=== PATIENT | female | born 1960 | race Caucasian/White ===

== ENCOUNTER 2016-07-14 15:07 | Emergency (ER) | payer OTHER, MEDICAID ==
[~2016-07-14] VITALS: Ht 162.6 cm; Wt 83.9 kg
[~2016-07-14 15:07] MED LIST: LEVO100I IV
[2016-07-14 16:08] LABS: Albumin 4.4 g/dL (3.4-5.0); Calcium 9.3 mg/dL (8.5-10.1); Potassium 4.2 mmol/L (3.5-5.1)
[2016-07-14 16:10] LABS: BUN/Creatinine Ratio 16.2
[2016-07-14 16:12] LABS: Basophils # (auto) 0 uL; Basophils % (auto) 0.3 % (0.0-2.0); Eosinophils # (auto) 0.2 uL; Eosinophils % (auto) 2.4 % (0.0-7.0); Hematocrit 36.6 % (36.0-46.0); Hemoglobin 12.1 g/dL (12.2-16.2); Lymphocytes # (auto) 2.2 uL; Lymphocytes % (auto) 33.5 % (10.0-50.0); Mean Corpuscular Hgb Conc. 33.2 g/dL (32.0-36.0); Mean Corpuscular Volume 93.3 fL (80.0-100.0); Mean Platelet Volume 7.9 fL (7.4-10.4); Monocytes # (auto) 0.4 uL; Monocytes % (auto) 6.9 % (0.0-12.0); Neutrophils # (auto) 3.7 uL; Neutrophils % (auto) 56.9 % (37.0-80.0); Platelet Count (auto) 325 10^3/uL (140-450); Red Cell Distribution Width 13.3 % (11.6-16.0); White Blood Cell 6.5 10^3/uL (4.4-10.8)
[2016-07-14 16:13] LABS: Bilirubin, Total 0.5 mg/dL (0.2-1.0); Total Protein 7.1 g/dL (6.4-8.2)
[2016-07-14] MEDS ORDERED: SODIUM CHLORIDE 0.9% 250 ML IV ONE (16:26)
[2016-07-14 17:28] LABS: Urine RBC None Seen /hpf (0 - 4)
[2016-07-14 18:11] LABS: Urine Bilirubin Negative (Negative); Urine Blood Negative /uL (Negative); Urine Color Yellow (Yellow); Urine Glucose Normal (Normal); Urine Ketone Negative (Negative); Urine Nitrite Negative (Negative); Urine Squamous Epithelial Cell FEW /hpf (<5); Urine Urobilinogen Normal (Negative); Urine pH 7.5 (5.0-8.0)
[2016-07-14 20:19] VITALS: BP 128/70
== END 2016-07-14 20:44 | disposition home or self-care (01) ==
LOC: EDBD 15:07 → ER 15:14
DX: G40.909 Epilepsy, unspecified, not intractable, without status epilepticus (principal); R53.1 Weakness; E03.9 Hypothyroidism, unspecified; R51 Headache
CPT/HCPCS: 36415; 71020; 80053; 81001; 83735; 84443; 85025; 93005; 94761; 99285; J7030

== ENCOUNTER 2017-06-19 02:52 | Emergency (ER) | payer OTHER, MEDICAID ==
[~2017-06-19] VITALS: Ht 172.7 cm; Wt 81.6 kg
[2017-06-19 05:46] LABS: Urine Bacteria NONE SEEN /hpf (None Seen); Urine Blood Negative /uL (Negative); Urine Specific Gravity 1.004 (1.001-1.035); Urine WBC <1 /hpf (0 - 5)
[2017-06-19 06:47] LABS: Amphetamine Screen, Urine NEGATIVE (NEGATIVE); Barbiturate Scree,Urine NEGATIVE (NEGATIVE); Benzodiazephine Screen, Urine NEGATIVE (NEGATIVE); Cannabinoid Screen, Urine NEGATIVE (NEGATIVE); Cocaine Screen, Urine NEGATIVE (NEGATIVE); Opiate Scree,Urine NEGATIVE (NEGATIVE); Phencyclidine Screen, Urine NEGATIVE (NEGATIVE)
[2017-06-19 06:59] LABS: Basophils # (auto) 0 uL; Basophils % (auto) 0.4 % (0.0-2.0); Eosinophils # (auto) 0.1 uL; Eosinophils % (auto) 1.4 % (0.0-7.0); Hematocrit 35.8 % (36.0-46.0); Lymphocytes # (auto) 3.4 uL; Lymphocytes % (auto) 38.9 % (10.0-50.0); Mean Corpuscular Hemoglobin 32.1 pg (28.0-32.0); Mean Corpuscular Hgb Conc. 33.6 g/dL (32.0-36.0); Mean Corpuscular Volume 95.6 fL (80.0-100.0); Monocytes # (auto) 0.6 uL; Neutrophils # (auto) 4.5 uL; Neutrophils % (auto) 52.3 % (37.0-80.0); Nucleated Red Blood Cells % 0.1 %; Platelet Count (auto) 259 10^3/uL (140-450); Red Blood Cells 3.74 10^6/uL (4.0-5.20); Red Cell Distribution Width 13.4 % (11.8-14.3); White Blood Cell 8.6 10^3/uL (4.4-10.8)
[2017-06-19 07:18] LABS: Albumin 4.1 g/dL (3.4-5.0); BUN/Creatinine Ratio 14.4; Bilirubin, Total 0.4 mg/dL (0.2-1.0); Calcium 8.4 mg/dL (8.5-10.1); Total Protein 6.9 g/dL (6.4-8.2)
[2017-06-19 09:48] VITALS: BP 129/85
[2017-06-19] MEDS ORDERED: ACETAMINOPHEN 325 MG TAB PO ONE (10:30)
== END 2017-06-19 11:02 | disposition home or self-care (01) ==
LOC: EDBD 02:52 → EDUNIT# 02:52 → ER 02:59
DX: S00.03XA Contusion of scalp, initial encounter (principal); G40.909 Epilepsy, unspecified, not intractable, without status epilepticus; F32.9 Major depressive disorder, single episode, unspecified; F41.9 Anxiety disorder, unspecified; Z90.49 Acquired absence of other specified parts of digestive tract; Z90.710 Acquired absence of both cervix and uterus; Z88.6 Allergy status to analgesic agent; W19.XXXA Unspecified fall, initial encounter; Y93.89 Activity, other specified; Y92.89 Other specified places as the place of occurrence of the external cause; Y99.8 Other external cause status
CPT/HCPCS: 36415; 70450; 72125; 80053; 80307; 80320; 81001; 85025

== ENCOUNTER 2021-06-25 16:14 | Emergency (ER) | payer OTHER, MEDICAID ==
[~2021-06-25] VITALS: Ht 167.6 cm; Wt 104.3 kg
[2021-06-25 16:25] VITALS: BP 144/77
== END 2021-06-25 18:17 | disposition home or self-care (01) ==
LOC: ER 16:14
DX: S83.91XA Sprain of unspecified site of right knee, initial encounter (principal); S46.911A Strain of unspecified muscle, fascia and tendon at shoulder and upper arm level, right arm, initial encounter; Z90.49 Acquired absence of other specified parts of digestive tract; Z90.710 Acquired absence of both cervix and uterus; W01.0XXA Fall on same level from slipping, tripping and stumbling without subsequent striking against object, initial encounter; Y93.89 Activity, other specified; Y92.89 Other specified places as the place of occurrence of the external cause; Y99.8 Other external cause status
CPT/HCPCS: 73030; 73562

== ENCOUNTER 2024-05-03 06:05 | Observation (INO) | payer OTHER, MEDICAID ==
[~2024-05-03] VITALS: Ht 167.6 cm; Wt 104.3 kg
[~2024-05-03 06:05] MED LIST changes: +CITA-73 PO; +LAMO200T34 PO; -LEVO100I IV; +LEVO88CA3 PO; +PANT40TA2 PO; +TEMA30CA PO
[2024-05-03] MEDS: ROPIVACAINE 0.5% (5MG/ML) 20ML AMPULE IJ ONE (07:12)
[2024-05-03] MEDS ORDERED: HYDROmorphone HCL 2 MG/ML VL/or syr ONE (07:24)
[2024-05-03] MEDS ORDERED: fentaNYL CITRATE 100 MCG/2 ML VL ONE (07:24)
[2024-05-03] MEDS ORDERED: MIDAZOLAM HCL 2MG/2ML 2ml VIAL (1mg/ml) ONE (07:24)
[2024-05-03] MEDS ORDERED: DexAMETHasone SOD PHOS 10MG/1ML VIAL INJ ONE (07:24)
--- NOTE | 2024-05-03 07:24 | DVHOP2 ---
Operative Report - 2 Report Details Date: 05/03/24 Preop Diagnosis: Right shoulder rotator cuff arthropathy Postop Diagnosis: Right shoulder rotator cuff arthropathy Surgeon: Feng Franz MD Anesthesiologist: Dr Robertson Anesthesia: General, Regional Implant: FX shoulder system Consent: The patient was informed of the risks and benefits of the procedure. These include but are not limited to complications of anesthesia, postoperative infection, incomplete relief of symptoms, recurrence of symptoms, damage to blood vessels, nerves and tendons, deep venous thrombosis, pulmonary embolism and possible need for repeat surgery in the future. Complications: None Estimated Blood Loss: Less than 100 mL Indications for Surgery: The patient is a 64-year-old female who presented to the clinic with a history of right shoulder pain. She had history of prior rotator cuff repairs done at an outside hospital. MRI showed significant atrophy of the rotator cuff muscles with significant retraction and massive rotator cuff tear. Nonoperative and operative management options were discussed. 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 Sensation over the axillary nerve was intact. Nonoperative and operative management options were discussed. Surgery in the form of reverse shoulder arthroplasty was discussed as one of the options. This was recommended given her age and activity level. Surgical complications such as neurovascular injury, infection, arthrofibrosis, loss of limb or life were discussed. The p atient decided to proceed with the surgical option. Name of Procedure Performed Right reverse shoulder replacement, open biceps tenodesis Procedure Details Procedure Details: The patient was identified in the preoperative holding area and the surgical site was marked. The consent was verified. The patient was brought into the operating room and placed supine on the operating table. General anesthesia was administered. The patient was brought into the beachchair position at 45 degrees angle. The extremity was prepped and draped in the usual sterile manner with Betadine and ChloraPrep. A timeout was called out to confirm the identity of the patient, the nature of surgery, the site of surgery, development of implants and x-rays and allergies to medications. All the bony prominences were appropriately padded Exposure: A standard deltopectoral approach was used. An incision was made from the superior portion of the coracoid to the upper arm lateral to the axillary line. The skin and the subcutaneous tissue were dissected. The deep fascia was incised. The cephalic vein was identified. The coracoid was identified and the conjoined tendon was also identified. The pectoralis tendon, approximately 1 cm was released. The biceps tendon was identified and tenodesis was carried out. This was sutured to the pectoralis major tendon with the help of FiberWire suture and was cut proximally. Sherman retractors were inserted. Adequate exposure was noted. The deltoid was released with the help of a Wilson elevator for better exposure. The subscapularis tendon was identified. The subsca pularis tendon was released. Circumflex arteries and veins were coagulated. This was whipstitched for later identification and possible repair. The humeral head was now exposed with external rotation and release of the inferior capsule. This was gently dislocated using a Darrach retractor. There was a full thickness rotator cuff tear, massive retraction Humeral cut: The retroversion was set to 30 degrees. An external guide was used and affixed to the bone with the help of guide pins. Next, a saw was used to create the humeral cut. This was just above the rotator cuff footprint. Next, a small drill was used to find the intramedullary canal. Next, the humeral side was now prepared. This was now reamed up to 14 mm. Glenoid exposure and implantation of glenoid prosthesis: A Darrach retractor was then inserted to retract the humeral head and expose the glenoid. Release of the anterior and posterior capsule was carried out. Release of the middle and inferior glenohumeral ligament was carried out. Superior labrum and biceps were removed. Some cartilage damage of the glenoid was noted. Minimal retroversion was noted. A tug test was performed to confirm the position of the axillary nerve which was out of the surgical field. The inferior capsule was left intact and was released only with the help of a blunt elevator. Next, the center of the glenoid was marked with the help of a Bovie using the biceps and the coracoid as landmarks. Next a guide was inserted, a guidewire was inserted through the central portion. This was found to be in anatomic location, slightly inferior to the center. Next the central reamer was inserted. Next the hand-held peripheral reamer was inserted. The periphery was reamed, minimal cartilage was removed. Appropriate soft tissue resection was carried out. Minimal cartilage was removed to preserve the underlying bone. Next the baseplate was inserted with the help of an make up editor A central post was applied to the final implant on the back table and inserted with gentle taps. It was rotated to align the screws in the appropriate directions. Next a drill guide was used to drill the hole for the screws. Locking and nonlocking screws were used for excellent compression and fixation. Central screw was inserted. The glenosphere was now implanted on top of the baseplate over the guidewire with the screw. The screw was rotated over the glenosphere for excellent fixation. No impingement was noted. A Katherin was used to test the stability of baseplate as well as the glenosphere and was found to be very secure. Next, a trial stem was inserted. Next, a provisional soft tissue tensioning assessment was done with an attempt to reduce with a 3 mm trial liner. This was found to be adequate with 1 mm of shuck. The final stem and liner was opened up. The joint was now trialed again with a 6 mm liner and was noticed to be excellent. A final 6 mm implant was opened up and inserted on the humeral stem. This was tapped and excellent fixation was noted. Excellent stability and range of motion was noted, abduction of 120 and flexion up to 120 degrees. The shoulder did not dislocate with adduction, internal rotation and extension or with abduction and external rotation. Shuck test was acceptable with approximately 1 mm of gap with manual longitudinal traction. The fixation was tested with the help of a Katherin clamp. Excellent fixation was noted. Irrigation was given with bulb syringe lavage with bacitracin and normal saline, Betadine and vancomycin powder was applied as well. All bony debris was also removed. C-arm was used throughout the procedure for evaluation of guidewire, humeral cut, baseplate and glenosphere position and finally humerus stem position and joint reduction. The subscapularis was approximated with the help of looped Ethibond sutures through the bone tunnel. Some approximation was noted. The deep tissue, skin and the subcutaneous tissue were closed with 0 Vicryl, 2-0 Vicryl, and letha. Sterile dressing was applied. The patient was placed in a shoulder immobilizer. Condition Good Disposition Home FENG FRANZ MD May 03, 2024 07:24
[2024-05-03] MEDS: ceFAZolin 2 GM/D5W100ml 100 ML IV ONE (07:26)
[2024-05-03] MEDS: CEFEPIME 1GM/ 50ML 50 ML IV ONE (07:26)
[2024-05-03] MEDS: TRANEXAMIC ACID 20 ML ONE (07:35)
[2024-05-03] MEDS ORDERED: ONDANSETRON HCL 4 MG/2 ML VIAL ONE (07:44)
[2024-05-03] MEDS ORDERED: ETOMIDATE (2MG/ML) 20ML VIAL IV ONE (07:44)
[2024-05-03] MEDS: CLINDAMYCIN 600MG IV 50 ML IV ONE (07:45)
[2024-05-03] MEDS: KETOROLAC TROMETH 30 MG/ML 1ML VIAL ONE (08:13)
[2024-05-03] MEDS: BUPIVACAINE 0.25% INJ 50ML VIAL ONE (08:13)
[2024-05-03] MEDS: MORPHINE SULF PF 5 MG/10 ML VIAL ONE (08:13)
[2024-05-03] MEDS: CLINDAMYCIN 300MG IV 50 ML IV ONE (08:20)
[2024-05-03] MEDS ORDERED: hydrALAZINE HCL 20 MG/ML VL IV PRN (08:30)
[2024-05-03] MEDS: KETOROLAC TROMETH 30 MG/ML 1ML VIAL IV ONE (08:30)
[2024-05-03] MEDS ORDERED: ePHEDrine SULFATE 50 MG/ML AMP IV PRN (08:30)
[2024-05-03] MEDS ORDERED: HYDROmorphone HCL 2 MG/ML VL/or syr IV PRN (08:30)
[2024-05-03] MEDS ORDERED: MORPHINE SULFATE 4 MG/ML SYR/VIAL IV PRN (08:30)
[2024-05-03] MEDS: ONDANSETRON HCL 4 MG/2 ML VIAL IV ONE (08:30)
[2024-05-03] MEDS ORDERED: MIDAZOLAM HCL 2MG/2ML 2ml VIAL (1mg/ml) IV PRN (08:30)
[2024-05-03] MEDS ORDERED: ROCURONIUM 10MG/ML 10ML VIAL IV ONE (08:43)
[2024-05-03] MEDS: VANCOMYCIN HCL 1000 MG VL ONE (09:16)
[2024-05-03] MEDS ORDERED: ePHEDrine SULFATE 50 MG/ML AMP ONE (09:52)
[2024-05-03] MEDS ORDERED: SUGAMMADEX 200mg/2ml Vial (100MG/ML) IV ONE (09:52)
--- NOTE | 2024-05-03 10:15 | DVH ---
FLUOROSCOPY TIME: 8.2 seconds TECHNIQUE: Intraoperative radiographs of the right shoulder were obtained. COMPARISON: None FINDINGS: Refer to intraoperative report for further evaluation. IMPRESSION: Refer to intraoperative report for further evaluation.
--- NOTE | 2024-05-03 10:15 | DVH ---
FLUOROSCOPY TIME: 8.2 seconds TECHNIQUE: Intraoperative radiographs of the right shoulder were obtained. COMPARISON: None FINDINGS: Refer to intraoperative report for further evaluation. IMPRESSION: Refer to intraoperative report for further evaluation.
[2024-05-03 10:20] VITALS: O2SAT 98
[2024-05-03] MEDS ORDERED: ONDANSETRON HCL 4 MG/2 ML VIAL IV PRN (10:30)
[2024-05-03] MEDS ORDERED: MORPHINE SULFATE INJ 2 MG/ml SYRG IV PRN (10:30)
[2024-05-03] MEDS ORDERED: NITROGLYCERIN 0.4 MG SL TAB SL PRN (10:30)
[2024-05-03 13:09] VITALS: BP 118/64; PULSE 86; RESP 16; TEMP 97.3; O2SAT 97
[2024-05-03 14:10] LABS: Chloride 106 mmol/L (98-107); Potassium 4.4 mmol/L (3.5-5.1); Sodium 138 mmol/L (136-145)
[2024-05-03 14:11] LABS: Anion Gap 9 (5-15); Calcium 9.5 mg/dL (8.7-10.4); Carbon Dioxide 23 mmol/L (20-31)
[2024-05-03 14:16] LABS: BUN/Creatinine Ratio 16.5 (10.0-20.0); Blood Urea Nitrogen 17 mg/dL (9-23); Glucose 137 mg/dL (74-106)
[2024-05-03] MEDS: ceFAZolin 1GM/50ML 50 ML IV SCH (14:56)
[2024-05-03 16:40] VITALS: BP 122/69; PULSE 69; RESP 18; TEMP 97.9; O2SAT 96
[2024-05-03] MEDS: LACTATED RINGER'S 1,000 ML IV SCH (18:40)
[2024-05-03 20:00] VITALS: PULSE 68; RESP 18; O2SAT 96
[2024-05-03] MEDS: DOCUSATE SOD 100 MG CAP PO SCH (20:58)
[2024-05-03 21:00] VITALS: BP 128/64; PULSE 65; RESP 18; TEMP 97.7; O2SAT 96
[2024-05-03] MEDS: HYDROmorphone HCL 2 MG/ML VL/or syr IV PRN (22:52)
[2024-05-04 01:00] VITALS: BP 133/54; PULSE 62; RESP 19; TEMP 97.7; O2SAT 97
[2024-05-04 05:00] VITALS: BP 135/71; PULSE 60; RESP 18; TEMP 97.6; O2SAT 98
--- NOTE | 2024-05-04 07:46 | DVHDS2 ---
Discharge Summary Date of Admission May 03, 2024 at 10:22 Date of Discharge: May 04, 2024 Labs/Diagnostic Data: Laboratory Results Test 05/03/24 13:20 Sodium Level 138 mmol/L (136-145) Potassium Level 4.4 mmol/L (3.5-5.1) Chloride Level 106 mmol/L (98-107) Carbon Dioxide Level 23 mmol/L (20-31) Anion Gap 9 (5-15) Blood Urea Nitrogen 17 mg/dL (9-23) Creatinine 1.03 mg/dL (0.550-1.02) Glomerular Filtration Rate Calc 60 mL/min (>90) BUN/Creatinine Ratio 16.5 (10.0-20.0) Serum Glucose 137 mg/dL (74-106) Calcium Level 9.5 mg/dL (8.7-10.4) Other Laboratory Tests 05/03/24 13:20 Brief Hx & Hospital Course: Patient was brought to the hospital yesterday to undergo a right reverse shoulder arthroplasty. She tolerated the procedure well without complications and was kept overnight for postoperative observation. She has remained medically stable denying any overnight events but does reports severe postoperative shoulder pain that is only minimally improved with the help of pain medication. Patient reports that she has been able to get up and walk around her room to use the restroom and back to her bed with minimal issues. Patient is otherwise feeling well denying any other complaint or concern during my evaluation. Condition at Discharge: Good Final Diagnosis/Problems List Right shoulder rotator cuff arthropathy Discharge Disposition: Home Discharge Instruct/Medications Diet: Regular Activity: See Comment Activity comment: Patient to remain in shoulder immobilizer for six weeks from her date of surgery Follow Up/Referral: I instructed the patient to follow up with our office in 10-14 days for her 1st postoperative evaluation Medications: Rx sent via our outpatient EMR system Discharge Statement: "Patient was advised to return to the ER or call 911 if any headaches, dizziness, shortness of breath, chest pain, abdominal pain, bleeding, fevers, or worsening of medical condition. Patient was counseled about treatment plan, medications, possible side effects, patientverbalized understanding. All questions were answered to the best of my ability. This discharge took greater then 30 minutes in planning, reviewing documentation, counseling the patient, and discussing with other team members." ASSESSMENT ASSESSMENT Assessment Right shoulder rotator cuff arthropathy GIA ESPOSITO May 04, 2024 07:46
--- NOTE | 2024-05-04 07:50 | DVHPN2 ---
Progress Note - Dictate Date Seen: May 04, 2024 Medical Necessity Reason Pt with a Central, PICC or Fol: No Subjective Patient was sitting up comfortably in bed during my evaluation reports some postoperative shoulder pain that is being minimally improved with the help of pain medication. Patient reports that she has been able to get up and walk around her room to use the restroom and back to her bed with minimal issues. Patient is otherwise feeling well denying any other complaint or concern during my evaluation. vital signs Vital Sign Date Time Temp Pulse Resp B/P (MAP) Pulse Ox O2 Delivery O2 Flow Rate FiO2 05/04/24 06:52 70 18 130/68 05/04/24 05:00 97.6 98 97.6 05/03/24 20:00 Nasal Cannula* 3 32 Total Intake and Output 05/03/24 05/03/24 05/04/24 15:00 23:00 07:00 Intake Total 270 ml 650 ml 1100 ml Balance 270 ml 650 ml 1100 ml medications Current Medications Medications Dose Ordered Sig/Sharon Route Start Time Stop Time Status Last Admin Dose Admin Lactated Ringer's 1,000 ml @ 100 mls/hr Q10H IV 05/03/24 10:30 05/04/24 06:29 100 MLS/HR Acetaminophen 650 mg Q6HP PRN PO 05/03/24 10:30 Hydromorphone HCl 1 mg Q2HP PRN IV 05/03/24 10:30 05/04/24 06:22 1 MG Ondansetron HCl 4 mg Q6HP PRN IV 05/03/24 10:30 Docusate Sodium 100 mg Q12HR PO 05/03/24 22:00 05/03/24 20:58 100 MG Nitroglycerin 0.4 mg Q5MINP PRN SL 05/03/24 10:30 Morphine Sulfate 2 mg Q30M PRN IV 05/03/24 10:30 objective A&O x4 in no acute distress Shoulder range of motion not evaluated as patient remains in shoulder immobilizer Aquacel dressing clean, dry, and intact No distal edema or calf tenderness to palpation Neurovascularly intact with cap refill less than 2 seconds laboratory and microbiology Laboratory Tests 05/03/24 13:20 Test 05/03/24 13:20 Range/Units Serum Glucose 137 H 74-106 mg/dL Assessment/Plan Patient to be discharged home and advised to remain in her shoulder immobilizer for six weeks from the date of her surgery. I also advised the patient to maintain her dressings clean, dry, and intact and to call our office to schedule her 1st postoperative evaluation in 10-14 days or if she has any questions or concerns. Rx sent via our outpatient EMR system. She understood and agreed. Plan discussed with: Patient GIA ESPOSITO May 04, 2024 07:50
[2024-05-04 08:00] VITALS: PULSE 72; RESP 18; O2SAT 97
[2024-05-04 09:00] VITALS: BP 133/69; PULSE 66; RESP 20; TEMP 97.8; O2SAT 97
[2024-05-04] MEDS: ACETAMINOPHEN 325 MG TAB PO PRN (09:11)
[2024-05-04 10:04] LABS: Albumin 4.7 g/dL (3.2-4.8); Alkaline Phosphatase 102 U/L (46-116); Anion Gap 7 (5-15); BUN/Creatinine Ratio 18.1 (10.0-20.0); Blood Urea Nitrogen 17 mg/dL (9-23); Calcium 9.8 mg/dL (8.7-10.4); Carbon Dioxide 28 mmol/L (20-31); Chloride 101 mmol/L (98-107); Potassium 4.2 mmol/L (3.5-5.1); Sodium 136 mmol/L (136-145)
[2024-05-04 10:05] LABS: Bilirubin, Total 0.7 mg/dL (0.2-1.0); Total Protein 6.8 g/dL (5.7-8.2)
[2024-05-04 10:33] LABS: Alanine Aminotransferase 52 U/L (7-40); Aspartate Aminotransferase 63 U/L (13-40); Glucose 112 mg/dL (74-106)
== END 2024-05-04 12:15 | disposition home or self-care (01) ==
LOC: SUR 06:05 → OVERFLOW 10:22 → WEST WING 12:19
PROVIDERS: ADMIT Orthopaedic Surgery Sports Medicine; ATTEND Orthopaedic Surgery Sports Medicine
DX: M75.121 Complete rotator cuff tear or rupture of right shoulder, not specified as traumatic (principal); F32.9 Major depressive disorder, single episode, unspecified; E03.9 Hypothyroidism, unspecified; G83.9 Paralytic syndrome, unspecified; Z79.899 Other long term (current) drug therapy; Z98.890 Other specified postprocedural states
CPT/HCPCS: 23472; 36415; 73020; 76000; 80048; 80053; 86850; 86900; 86901; 96365; 96366; 96375; 96376; 97163; C1713; C1776; G0378; J0690; J0692; J1100; J1171; J1885; J2250; J2270; J2405; J2795; J3010; J3370; J3490; A4565

== ENCOUNTER 2024-11-29 15:39 | Emergency (ER) | payer OTHER, MEDICAID ==
[~2024-11-29] VITALS: Ht 165.1 cm; Wt 110.3 kg
[2024-11-29 16:24] VITALS: BP 156/89; PULSE 74; RESP 17; TEMP 97.8; O2SAT 94
--- NOTE | 2024-11-29 16:27 | ED.PDOC ---
GI ASSESSMENT HPI Comments A 64 YEAR OLD FEMALE PRESENTS TO THE ED WITH COMPLAINT OF RIGHT MIDDLE ABDOMINAL PAIN. PATIENT STATES SHE HAS BEEN EXPERIENCING RIGHT-SIDED MIDDLE ABDOMINAL PAIN THAT RADIATES TO HER FLANK WITH NAUSEA FOR THE PAST 3 DAYS. PATIENT NOTES HER PAIN IS WORSE WITH MOVEMENT. PATIENT DENIES DYSURIA, HEMATURIA, FEVER, CHILLS, SHORTNESS OF BREATH, CHEST PAIN, VOMITING, HEADACHE, OR OTHER COMPLAINTS. NO OTHER SYMPTOMS OR MODIFYING FACTORS AT THIS TIME. PATIENT IS ALERT, ORIENTED X 4, AND HAS STEADY GAIT. Chief Complaint: Abdominal Pain Time Seen by MD: 15:53 Primary Care Provider: ZARI Reviewed Notes: Nurses Notes, Medications, Allergies Allergies: Coded Allergies: Clonazepam (Unverified Allergy, Severe, hypotension, 05/02/24) Hydroxyzine (Verified Allergy, Unknown, 12/20/13) Phenylephrine (Verified Allergy, Unknown, 05/02/24) Uncoded Allergies: PAPER TAPE (Allergy, Unknown, 11/29/24) ADHESIVE (Adverse Reaction, Unknown, 12/20/13) Home Meds Active Scripts Tramadol Hcl (Tramadol Hcl) 50 Mg Tab, 50 MG PO BID, #20 TAB Prov:SANDEE CHERRY 11/29/24 Reported Medications Temazepam (Temazepam) 30 Mg Cap, 30 MG PO HS, CAP 05/02/24 Citalopram Hydrobromide (Citalopram Hydrobromide) 40 Mg Tab, 40 MG PO QAM, TAB 05/02/24 Pantoprazole Sodium Sesquihydr (Protonix) 40 Mg Tab, 40 MG PO DAILY, #30 TAB 05/02/24 Lamotrigine (Lamotrigine) 200 Mg Tab, 200 MG PO BID, TAB 05/02/24 Levothyroxine Sodium (Levothyroxine Sodium) 88 Mcg Cap, 88 MCG PO DAILY, CAP 05/02/24 Information Source: Patient Mode of Arrival: Ambulatory Timing: Days Duration: Since onset, Days Prehospital treatment: None Quality: Aching, Cramping, Colicky Vomitus: None Stool: Normal Severity: Moderate Recent: None Recent Hx of: None Pain Location: Epigastric, RUQ, Other (RIGHT MIDDLE ABDOMINAL PAIN) Modifying Factors: Nothing Associated sign and symptoms: Abdominal Pain Past Medical History PAST MEDICAL HISTORY: Anxiety, Depression, GERD, Seizures, Thyroid Past Medical History (Other): HIATAL HERNIA Surgical History: Appendectomy, Cholecystectomy, Hysterectomy WEB PRODUCTION ASSISTANT History: No Pertinent WEB PRODUCTION ASSISTANT History Family History Family History: Reviewed,noncontributory to illness Social History Smoker: Non-Smoker Alcohol: Heavy Drugs: Denies Drug Use Lives In: Home Constitutional: denies: chills, diaphoresis, fatigue, fever, malaise, sweats, weakness, others EENTM: denies: blurred vision, double vision, ear bleeding, ear discharge, ear drainage, ear pain, ear ringing, eye pain, eye redness, hearing loss, mouth pain, mouth swelling, nasal discharge, nose bleeding, nose congestion, nose pain, photophobia, tearing, throat pain, throat swelling, voice changes, others Respiratory: denies: cough, hemoptysis, orthopnea, SOB at rest, shortness of breath, SOB with excertion, stridor, wheezing, others Cardiovascular: denies: chest pain, dizzy spells, diaphoresis, Dyspnea on exertion, edema, irregular heart beat, left arm pain, lightheadedness, palpitations, PND, syncope, others Gastrointestinal: reports: abdominal pain, nausea; denies: abdomen distended, blood streaked bowels, constipated, diarrhea, dysphagia, difficulty swallowing, hematemesis, melena, poor appetite, poor fluid intake, rectal bleeding, rectal pain, vomiting, others Genitourinary: denies: abnormal vagina bleeding, burning, dyspareunia, dysuria, flank pain, frequency, hematuria, incontinence, pain, , vagina discharge, urgency, others Neurological: denies: dizziness, fainting, headache, left sided numbness, left sided weakness, numbness, paresthesia, pre-existing deficit, right sided numbness, right sided weakness, seizure, speech problems, tingling, tremors, weakness, others Musculoskeletal: denies: back pain, gout, joint pain, joint swelling, muscle pain, muscle stiffness, neck pain, others Integumetry: denies: bruises, change in color, change in hair/nails, dryness, laceration, lesions, lumps, rash, wounds, others Allergic/Immunocompromised: denies: Difficulty Healing, Frequent Infections, Hives, Itching, others Hematologic/Lymphatic: denies: anemia, blood clots, easy bleeding, easy bruising, swollen glands, others Endocrine: denies: excessive hunger, excessive sweating, excessive thirst, excessive urination, flushing, intolerance to cold, intolerance to heat, unexplained weight gain, unexplained weight loss, others Psychiatric: denies: anxiety, bipolar disorder, depression, hopeless, panic disorder, schizophrenia, sleepless, suicidal, others All Other Systems: Reviewed and Negative Physical Exam General Appearance: Obese HEENT: Normal ENT Inspection, PERRL/EOMI, Pharynx Normal, TMs Normal Neck: Full Range of Motion, Non-Tender, Normal, Normal Inspection Respiratory: Chest Non-Tender, Lungs Clear, No Accessory Muscle Use, No Respiratory Distress, Normal Breath Sounds Cardiovascular: No Edema, No JVD, No Murmur, No Gallop, Normal Peripheral Pulses, Regular Rate/Rhythm Breast Exam: Deferred Gastrointestinal: Epigastric, No Organomegaly, No Pulsatile Mass, Normal Bowel Sounds, RUQ, Soft, Tenderness (RIGHT UPPER ABD TO RIGHT MIDDLE ABD, NO GUARDING AND REBOUND TENDERNESS. ) Genitalia: Deferred Pelvic: Deferred Rectal: Deferred Extremities: No calf tenderness, Normal capillary refill, Normal inspection, Normal range of motion, Non-tender, No pedal edema Musculoskeletal : Apperance: Normal Neurologic: Alert, power tong operator II-XII nml as Tested, No Motor Deficits, Normal Affect, Normal Mood, No Sensory Deficits Cerebellar Function: Normal Reflexes: Normal Skin: Dry, Normal Color, Warm Peripheral Pulses: 2+ carotid (R), 2+ carotid (L) Lymphatic: No Adenopathy Was a procedure done? Was a procedure done?: No GI differential Dx Differential Diagnosis: Bowel Obstruction, Constipation, Diverticular disease, Gastritis/PUD, Gastroenteritis, Hernia, UTI, Kidney Stone X-Ray, Labs, Meds, VS Vital Signs Date Time Temp Pulse Resp B/P (MAP) Pulse Ox O2 Delivery O2 Flow Rate FiO2 11/29/24 16:24 97.8 74 17 156/89 (111) 94 97.8 11/29/24 16:23 94 Room Air* 0 21 11/29/24 15:41 98.0 85 18 134/77 96 98.0 Lab Test 11/29/24 16:20 Range/Units White Blood Count 7.1 4.4-10.8 10^3/uL Red Blood Count 4.64 4.0-5.20 10^6/uL Hemoglobin 14.0 12.2-16.2 g/dL Hematocrit 41.5 36.0-46.0 % Mean Corpuscular Volume 89.4 80.0-100.0 fL Mean Corpuscular Hemoglobin 30.1 28.0-32.0 pg Mean Corpuscular Hemoglobin Concent 33.7 32.0-36.0 g/dL Red Cell Distribution Width 13.5 11.8-14.3 % Platelet Count 278 140-450 10^3/uL Mean Platelet Volume 7.1 6.9-10.8 fL Neutrophils (%) (Auto) 53.6 37.0-80.0 % Lymphocytes (%) (Auto) 37.2 10.0-50.0 % Monocytes (%) (Auto) 6.5 0.0-12.0 % Eosinophils (%) (Auto) 2.3 0.0-7.0 % Basophils (%) (Auto) 0.4 0.0-2.0 % Neutrophils # (Auto) 3.8 1.6-8.6 10 ^3/uL Lymphocytes # (Auto) 2.6 0.4-5.4 10 ^3/uL Monocytes # (Auto) 0.5 0-1.3 10 ^3/uL Eosinophils # (Auto) 0.2 0-0.8 10 ^3/uL Basophils # (Auto) 0 0-0.2 10 ^3/uL Nucleated Red Blood Cells 0.1 % Sodium Level 138 136-145 mmol/L Potassium Level 4.8 3.5-5.1 mmol/L Chloride Level 102 98-107 mmol/L Carbon Dioxide Level 26 20-31 mmol/L Anion Gap 10 5-15 Blood Urea Nitrogen 16 9-23 mg/dL Creatinine 1.07 H 0.550-1.02 mg/dL Glomerular Filtration Rate Calc 57 >90 mL/min BUN/Creatinine Ratio 15.0 10.0-20.0 Serum Glucose 99 74-106 mg/dL Calcium Level 9.7 8.7-10.4 mg/dL Total Bilirubin 0.5 0.2-1.0 mg/dL Aspartate Amino Transferase (AST) 27 13-40 U/L Alanine Aminotransferase (ALT) 23 7-40 U/L Alkaline Phosphatase 110 46-116 U/L Total Protein 7.5 5.7-8.2 g/dL Albumin 4.8 3.2-4.8 g/dL Lipase 44 12-53 U/L Current Medications Medications (Trade) Dose Ordered Sig/Sharon Route Start Time Stop Time Status Last Admin Ketorolac Tromethamine (Toradol Injection) 60 mg ONCE ONCE IM 11/29/24 17:30 11/29/24 17:31 DC 11/29/24 17:24 PATIENT: SERINA VÁZQUEZCCT: [id number]: [id number] : 1960 LOC: ER ROOM / BED: / AGE / SEX: 64 / F ADM STATUS: REG ER SERVICE 1623 ORDERING PHYSICIAN: SANDEE CHERRY PROCEDURE(s): ABPL - CT AB PEL WO CON-NO ORAL OR IV REASON: RIGHT MIDDLE ABD PAIN TO RIGHT FLANK ORDER NUMBER(s): [id number], ACCESSION NUMBER(s): [id number] Exam: CT CT AB PEL WO CON-NO ORAL OR IV History: RIGHT MIDDLE ABD PAIN TO RIGHT FLANK Comparison Study: None TECHNIQUE: Multidetector CT of the abdomen and pelvis was performed from lung bases to pubic symphysis. Imaging was performed without IV contrast. Axial, coronal, and sagittal multiplanar reformats were obtained from the axial data set by the technologist. RADIATION DOSE: DLP 1286.07 mGy.cm; CTDI vol 27.38 mGy. Findings: Lungs: The lung bases are clear. Heart: No cardiomegaly or pericardial effusion. Liver: Unremarkable. Gallbladder: Cholecystectomy. Spleen: Unremarkable Pancreas: Fatty infiltration of the pancreas. Adrenals: Unremarkable Kidneys: Unremarkable. No nephroureterolithiasis. GI tract: Small to moderate hiatal hernia. Diverticulosis without evidence of acute diverticulitis. : Unremarkable. Vasculature: Mild aortoiliac atherosclerosis. Lymphadenopathy: Absent Peritoneum: No ascites Musculoskeletal: Mild multilevel degenerative changes of the thoracolumbar spine. Grade 1 anterolisthesis of L5 on S1. Soft tissues: Unremarkable Impression: 1. No acute abdominopelvic abnormalities. 2. No nephroureterolithiasis. 3. Diverticulosis without evidence of acute diverticulitis. 4. Small to moderate hiatal hernia. ATED BY: VALENTIN,KAYCEE E DO DICTATED DATE/TIME: 11/29/241707 SIGNED BY: VALENTIN June DO SIGNED DATE/TIME: 11/29/241707 CC: X-Ray, Labs, Meds, VS Comment EXTERNAL MEDICAL RECORDS REVIEWED: [NONE] INDEPENDENT HISTORIANS: [NONE] SOCIAL DETERMINANTS OF HEALTH: [NONE] LABS ORDERED: CBC, CMP, UA, LIPASE REVIEWED AND INTERPRETED RESULTS: IMAGING ORDERED: CT ABD/PEL TREATMENTS ORDERED: TORADOL 60MG IM PROCEDURES PERFORMED: NONE CRITICAL CARE TIME: NONE I HAVE DISCUSSED THE PATIENT WITH THE ATTENDING PHYSICIAN DR. BLAIR AND HE AGREES WITH THE PATIENT'S PLAN OF CARE AND DISPOSITION. BASED ON HISTORY OF PRESENT ILLNESS, AND PHYSICAL EXAM, PATIENT WILL BE DISCHARGED HOME. DISCUSSED PLAN FOR DISCHARGE HOME WITH RX [ULTRAM 50MG]. MEDICATION WARNINGS GIVEN. SHARED DECISION MAKING: DISCUSSED WITH PATIENT THAT THEIR WORKUP WAS NORMAL. PATIENT INSTRUCTED TO FOLLOW UP WITH PRIMARY CARE PROVIDER IN 1-2 DAYS FOR RE- EVALUATION OF SYMPTOMS. PATIENT VERBALIZES UNDERSTANDING TO RETURN TO ED FOR NEW OR WORSENING SYMPTOMS OR IF FOLLOW UP WITH PCP CANNOT BE OBTAINED. PATIENT FEELS COMFORTABLE GOING HOME AT THIS TIME. ALL QUESTIONS ADDRESSED AT TIME OF DISCHARGE. Images Reviewed?: Images reviewed and evaluated by me Time of 1ST Reevaluation: 18:00 Reevaluation 1ST: Improved Patient Education/Counseling: Diagnosis, Treatment, Need For Follow Up Family Education/Counseling: Diagnosis, Treatment, Need For Follow Up Medical Screening: No EMC Exist At This Time SEPSIS Sepsis Screen Date sepsis recognized/suspect: Nov 29, 2024 Time Sepsis recognized/suspect: 1543 Recent Procedure: No On Antibiotic Therapy: No Respiratory Rate >20: No Heart Rate >90: No Temp<36 C (96.8 F) or >38.3 C: No SBP <90 or MAP <65 mmHG: No New Acute Mental Status Change: No Is the patient on CPAP, BIPAP,: No Physician Orders Urinalysis (11/29/24 15:53) Ct Ab Pel Wo Con-No Oral Or Iv (11/29/24 16:23) Vital Signs Date Time Temp Pulse Resp B/P (MAP) Pulse Ox O2 Delivery O2 Flow Rate FiO2 11/29/24 16:24 97.8 74 17 156/89 (111) 94 97.8 11/29/24 16:23 94 Room Air* 0 21 11/29/24 15:41 98.0 85 18 134/77 96 98.0 Laboratory Tests Test 11/29/24 16:20 White Blood Count 7.1 10^3/uL (4.4-10.8) Departure 1 Departure Time of Disposition: 18:00 Impression: Primary Impression: Hiatal hernia with GERD Disposition: HOME / SELF CARE / HOMELESS Condition: Stable Additional Instructions: FOLLOW-UP WITH PCP IN 1 TO 2 DAYS. TAKE MEDICATIONS PRESCRIBED. RETURN TO ED FOR ANY NEW OR WORSENING SYMPTOMS. e-Prescriptions Tramadol Hcl (Tramadol Hcl) 50 Mg Tab 50 MG PO BID, #20 TAB Prov: SANDEE CHERRY 11/29/24 Discharged With: Self, Relative Critical Care Note Critical Care Time?: No Stability Stability form required: No I personally scribed for SANDEE CHERRY ([email or web address]) on 11/29/24 at 16:27. Electronically submitted by Vadim Noyola ([email or web address]). SANDEE CHERRY Nov 29, 2024 16:27
[2024-11-29 16:30] LABS: Hematocrit 41.5 % (36.0-46.0); Hemoglobin 14.0 g/dL (12.2-16.2); Mean Corpuscular Hemoglobin 30.1 pg (28.0-32.0); Mean Corpuscular Volume 89.4 fL (80.0-100.0); Nucleated Red Blood Cells % 0.1 %
[2024-11-29 16:46] LABS: Alanine Aminotransferase 23 U/L (7-40); Alkaline Phosphatase 110 U/L (46-116); Anion Gap 10 (5-15); BUN/Creatinine Ratio 15.0 (10.0-20.0); Blood Urea Nitrogen 16 mg/dL (9-23); Calcium 9.7 mg/dL (8.7-10.4); Carbon Dioxide 26 mmol/L (20-31); Chloride 102 mmol/L (98-107); Glucose 99 mg/dL (74-106); Lipase 44 U/L (12-53); Potassium 4.8 mmol/L (3.5-5.1); Sodium 138 mmol/L (136-145); Total Protein 7.5 g/dL (5.7-8.2)
[2024-11-29 16:47] LABS: Albumin 4.8 g/dL (3.2-4.8); Bilirubin, Total 0.5 mg/dL (0.2-1.0)
--- NOTE | 2024-11-29 17:10 | DVH ---
Exam: CT CT AB PEL WO CON-NO ORAL OR IV History: RIGHT MIDDLE ABD PAIN TO RIGHT FLANK Comparison Study: None TECHNIQUE: Multidetector CT of the abdomen and pelvis was performed from lung bases to pubic symphysi s. Imaging was performed without IV contrast. Axial, coronal, and sagittal multiplanar reformats were obtained from the axial data set by the technologist. RADIATION DOSE: DLP 1286.07 mGy.cm; CTDI vol 27.38 mGy. Findings: Lungs: The lung bases are clear. Heart: No cardiomegaly or pericardial effusion. Liver: Unremarkable. Gallbladder: Cholecystectomy. Spleen: Unremarkable Pancreas: Fatty infiltration of the pancreas. Adrenals: Unremarkable Kidneys: Unremarkable. No nephroureterolithiasis. GI tract: Small to moderate hiatal hernia. Diverticulosis without evidence of acute diverticulitis. : Unremarkable. Vasculature: Mild aortoiliac atherosclerosis. Lymphadenopathy: Absent Peritoneum: No ascites Musculoskeletal: Mild multilevel degenerative changes of the thoracolumbar spine. Grade 1 anterolisth esis of L5 on S1. Soft tissues: Unremarkable Impression: 1. No acute abdominopelvic abnormalities. 2. No nephroureterolithiasis. 3. Diverticulosis without evidence of acute diverticulitis. 4. Small to moderate hiatal hernia.
[2024-11-29] MEDS ORDERED: TRAM50TA2 PO (17:20)
[2024-11-29] MEDS: KETOROLAC TROMETH 60MG/2ML VIAL IM ONE (17:24)
== END 2024-11-29 17:17 | disposition home or self-care (01) ==
LOC: ER 15:44
DX: K44.9 Diaphragmatic hernia without obstruction or gangrene (principal); F10.90 Alcohol use, unspecified, uncomplicated; F41.9 Anxiety disorder, unspecified; F32.A Depression, unspecified; K21.9 Gastro-esophageal reflux disease without esophagitis; Z91.048 Other nonmedicinal substance allergy status; Z90.710 Acquired absence of both cervix and uterus; Z79.899 Other long term (current) drug therapy; Z79.890 Hormone replacement therapy; Z90.49 Acquired absence of other specified parts of digestive tract
CPT/HCPCS: 36415; 74176; 80053; 83690; 85025; 96372; 99285; J1885